=== PATIENT | male | born 1990 | race Caucasian/White ===

== ENCOUNTER 2017-07-11 18:25 | Emergency (ER) | payer SELFPAY ==
[~2017-07-11] VITALS: Ht 172.7 cm; Wt 88.5 kg
[2017-07-11 18:30] VITALS: Ht 172.7 cm; Wt 88.5 kg
[2017-07-11] MEDS ORDERED: KETOROLAC 30 MG INJ IV STA (18:42)
[2017-07-11] MEDS ORDERED: VANCOMYCIN 1 GM (PMX) 250 ML IVPB SCH (19:00)
[2017-07-11 19:16] LABS: BASOPHILS % 0.3 % (0.0-2.0); EOSINOPHILS # 0.2 10^3/ul (0.0-0.5); EOSINOPHILS % 1.4 % (0.0-7.0); HEMATOCRIT 38.5 % (42.0-52.0); HEMOGLOBIN 13.6 g/dl (14.0-18.0); LYMPHOCYTES # 2.8 10^3/ul (0.8-2.9); LYMPHOCYTES % 24.8 % (15.0-51.0); MEAN CORPUSCULAR HEMOGLOBIN 30.8 pg (29.0-33.0); MEAN CORPUSCULAR HGB CONC 35.3 g/dl (32.0-37.0); MEAN CORPUSCULAR VOLUME 87.1 fl (82.0-101.0); MEAN PLATELET VOLUME 9.8 fl (7.4-10.4); MONOCYTE # 0.7 10^3/ul (0.3-0.9); MONOCYTES % 6.4 % (0.0-11.0); NEUTROPHIL # 7.5 10^3/ul (1.6-7.5); NEUTROPHILS % 66.7 % (39.0-77.0); PLATELET COUNT 292 10^3/UL (140-415); RED BLOOD COUNT 4.42 10^6/ul (4.70-6.10); RED CELL DISTRIBUTION WIDTH 11.9 % (11.5-14.5); WHITE BLOOD COUNT 11.3 10^3/ul (4.8-10.8)
[2017-07-11] MEDS ORDERED: CEPH500C PO (19:22)
[2017-07-11] MEDS ORDERED: IBUP-1542 PO (19:22)
[2017-07-11] MEDS ORDERED: SULF1TAB31 PO (19:22)
--- NOTE | 2017-07-11 19:26 | ERD ---
ER Documentation Chief Complaint Date/Time DATE: 07/11/17 TIME: 19:24 Chief Complaint left foot swelling x 3 days (LEWIS DAMON MD) HPI This 27-year-old male complains of left foot redness for the last 3 days. He also has pain. He denies any history of trauma, insect bites or known inciting events. Denies any diabetes, heart problems,. May have had subjective fevers but no fever triage. 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 (LEWIS DAMON MD) ROS All systems reviewed and are negative except as per history of present illness. (LEWIS DAMON MD) Medications Home Meds Active Scripts Ibuprofen* (Motrin*) 600 Mg Tab, 600 MG PO Q6H Y for PAIN, #20 TAB Prov:LEWIS DAMON MD 07/11/17 Cephalexin* (Cephalexin*) 500 Mg Capsule, 500 MG PO Q6 for 7 Days, #28 CAP Prov:LEWIS DAMON MD 07/11/17 Sulfamethoxazole/Trimethoprim* (Bactrim Ds* Tablet) 1 Each Tablet, 1 TAB PO BID for 7 Days, #14 TAB Prov:LEWIS DAMON MD 07/11/17 Allergies Allergies: Coded Allergies: No Known Allergy (Unverified , 07/11/17) PMhx/Soc Medical and Surgical Hx: pt denies Medical Hx, pt denies Surgical Hx History of Surgery: No Anesthesia Reaction: No Hx Neurological Disorder: No Hx Respiratory Disorders: No Hx Cardiac Disorders: No Hx Psychiatric Problems: No Hx Miscellaneous Medical Probl: No Hx Alcohol Use: Yes (Social) Hx Substance Use: No Hx Tobacco Use: No Smoking Status: Never smoker (LEWIS DAMON MD) Physical Exam Vitals Vital Signs Date Time Temp Pulse Resp B/P Pulse Ox O2 Delivery O2 Flow Rate FiO2 07/11/17 18:30 99.5 101 20 129/82 99 (KATHIE ADAN PA-C) Physical Exam Const: [] Alert, not ill-appearing. Head: Atraumatic Eyes: Normal Conjunctiva ENT: Normal External Ears, Nose and Mouth. Neck: Full range of motion..~ No meningismus. Resp: Clear to auscultation bilaterally Cardio: Regular rate and rhythm, no murmurs Abd: Soft, non tender, non distended. Normal bowel sounds Skin: No petechiae or rashes Back: No midline or flank tenderness Ext: No cyanosis, or edema . warmth and erythema and swelling over the dorsum of the left foot. No effusion and no bony abnormalities or deformities. No calf swelling or Homans sign. Neur: Awake and alert Psych: Normal Mood and Affect (LEWIS DAMON MD) Result Diagram: 07/11/17183907/11/171839 Results 24 hrs Laboratory Tests Test 07/11/17 18:40 White Blood Count 11.310^3/ul Red Blood Count 4.4210^6/ul Hemoglobin 13.6g/dl Hematocrit 38.5% Mean Corpuscular Volume 87.1fl Mean Corpuscular Hemoglobin 30.8pg Mean Corpuscular Hemoglobin Concent 35.3g/dl Red Cell Distribution Width 11.9% Platelet Count 15846^3/UL Mean Platelet Volume 9.8fl Neutrophils % 66.7% Lymphocytes % 24.8% Monocytes % 6.4% Eosinophils % 1.4% Basophils % 0.3% Nucleated Red Blood Cells % 0.0/100WBC Neutrophils # 7.510^3/ul Lymphocytes # 2.810^3/ul Monocytes # 0.710^3/ul Eosinophils # 0.210^3/ul Basophils # 0.010^3/ul Nucleated Red Blood Cells # 0.010^3/ul Sodium Level 142mmol/L Potassium Level 3.0mmol/L Chloride Level 102mmol/L Carbon Dioxide Level 26mmol/L Anion Gap 17 Blood Urea Nitrogen 9mg/dl Creatinine 0.90mg/dl Glucose Level 99mg/dl Calcium Level 10.2mg/dl Total Bilirubin 0.2mg/dl Direct Bilirubin 0.00mg/dl Indirect Bilirubin 0.2mg/dl Aspartate Amino Transf (AST/SGOT) 41IU/L Alanine Aminotransferase (ALT/SGPT) 89IU/L Alkaline Phosphatase 94IU/L Total Protein 8.6g/dl Albumin 4.9g/dl Globulin 3.70g/dl Albumin/Globulin Ratio 1.32 Lipase 53U/L Current Medications Medications (Trade) Dose Ordered Sig/Mile Route PRN Reason Start Time Stop Time Status Last Admin Dose Admin Ketorolac Tromethamine 30 mg 30 mg ONCE STAT IV 07/11/17 18:42 07/11/17 18:44 DC 07/11/17 18:55 Vancomycin HCl (Vancocin) 250 ml @ 125 mls/hr ONCE IVPB 07/11/17 19:00 07/11/17 20:59 DC 07/11/17 18:55 Potassium Chloride (Klor-Con 20) 40 meq ONCE STAT PO 07/11/17 20:54 07/11/17 20:56 DC DIAGNOSTIC IMAGING REPORT Patient: SKYLER CHACKO : 1990 Age: 27 Sex: M MR #: [id number] DOS: 07/11/17 1842 Ordering MD: LEWIS DAMON MD Location: [facility] Room/Bed: PROCEDURE: XR Foot. CLINICAL INDICATION: 27-year of age, male. Redness. TECHNIQUE: Three views of the left foot. COMPARISON: None available. FINDINGS: Negative for evidence of acute fracture. Normal alignment on this non-weight bearing view. There is soft tissue swelling at the dorsum of the forefoot. Negative for evidence of soft tissue gas. Negative for evidence of radiopaque foreign body. IMPRESSION: Negative for evidence of acute fracture or dislocation of the left foot. Soft tissue swelling over the dorsum of the forefoot without evidence of soft tissue gas. RPTAT: HCTS Physician Melo Date Time Electronically viewed and signed by Candelario Kessler Physician on 07/11/2017 20: 45 CS/ CC: LEWIS DAMON MD (KATHIE ADAN PA-C) Procedures/MDM Presents with signs of cellulitis of the left foot. Current signs and symptoms do not suggest effusion or septic arthritis, cellulitis, DVT. White blood cell count is 11. Patient is given vancomycin 1 g IV Toradol 30 mg IV. X-ray Foot 3V Interpreted by me: Bones: [No fracture] Joints: [No dislocation] Foreign body: [None] patient has a normal left foot x-ray Will be treated with Bactrim and Keflex, ibuprofen, instructions for elevation in 2 day recheck for worsening redness, fevers, new worsening symptoms. Will be signed out to PA process and supervising ER physician. She was stable with no new complaints up to preliminary dictation. (LEWIS DAMON MD) This patient was signed out to me by Dr. Lewis Damon pending results of foot x- ray. Per the radiology report images of the foot show no evidence of acute fracture dislocation. There is soft tissue swelling of the dorsum of the forefoot without evidence of soft tissue gas. Patient did have a mildly elevated white blood cell count. Blood Cultures are pending at time of discharge. Patient also had low potassium he was given 40 mEq of K-Dur here in the emergency department. Patient will be discharged home with Bactrim, Keflex and ibuprofen for pain. He was discharged home in stable condition work note. Patient declined crutches to help ambulate. (KATHIE ADAN PA-C) Departure Diagnosis: Primary Impression: Cellulitis Site of cellulitis: extremity Site of cellulitis of extremity: lower extremity Laterality: left Qualified Code: L03.116 - Cellulitis of left lower extremity Condition: Stable Patient Instructions: Cellulitis Additional Instructions: CHEQUE 2 [place]A [place] FRAG[place] , N[place] SIMPTOM[place]. PONE [place]. LEWIS DAMON MD Jul 11, 2017 19:26 KATHIE ADAN PA-C Jul 11, 2017 21:08
[2017-07-11 20:01] LABS: ALBUMIN 4.9 g/dl (3.3-4.9); ALBUMIN/GLOBULIN RATIO 1.32; BILIRUBIN,INDIRECT 0.2 mg/dl (0-1.1); BILIRUBIN,TOTAL 0.2 mg/dl (0.2-1.3); CALCIUM 10.2 mg/dl (8.4-10.2); CREATININE 0.9 mg/dl (0.61-1.24); TOTAL PROTEIN 8.6 g/dl (6.1-8.1)
--- NOTE | 2017-07-11 20:46 | RADRPT ---
PROCEDURE: XR Foot. CLINICAL INDICATION: 27-year of age, male. Redness. TECHNIQUE: Three views of the left foot. COMPARISON: None available. FINDINGS: Negative for evidence of acute fracture. Normal alignment on this non-weight bearing view. There is soft tissue swelling at the dorsum of the forefoot. Negative for evidence of soft tissue ga s. Negative for evidence of radiopaque foreign body. IMPRESSION: Negative for evidence of acute fracture or dislocation of the left foot. Soft tissue swelling over the dorsum of the forefoot without evidence of soft tissue gas. RPTAT: HCTS Physician Melo Date Time Electronically viewed and signed by Candelario Kessler Physician on 07/11/2017 20:45 CS/
[2017-07-11] MEDS ORDERED: POTASSIUM CHLORIDE (SR) 20 MEQ TAB PO STA (20:54)
[2017-07-11 21:18] VITALS: BP 128/78; PULSE 78; RESP 20; TEMP 98.3
== END 2017-07-11 21:20 | disposition home or self-care (01) ==
LOC: FTE 18:25
DX: L03.116 Cellulitis of left lower limb (principal)
CPT/HCPCS: 36415; 73630; 80053; 83690; 85025; 87040; 96374; 96375; 99284; J1885; J3370